=== PATIENT | female | born 1985 | race African-American/Black ===

== ENCOUNTER 2017-04-11 12:36 | Emergency (ER) | payer OTHER ==
--- NOTE | 2017-04-11 12:43 | ED ---
ENT HPI - General Stated complaint: Dental Pain Time Seen by Provider: 04/11/17 12:40 Source: patient, RN notes reviewed Mode of arrival: ambulatory Limitations: no limitations - History of Present Illness Initial comments: This a 32-year-old female presented emergency Department chief complaint of dental fracture. Patient states her tooth broke other day, filling fall out. Patient states that she woke up with excruciating pain today. Patient states that nothing seems to be helping. Patient denies any fever, chills, facial swelling. Denies any difficulty swallowing. Patient denies headache, dizziness , neck pain, chest pain, shortness breath. - Related Data Home Medications Medication Instructions Recorded Confirmed Albuterol Inhaler [Ventolin Hfa 1 - 2 puff INHALATION RT-Q6H PRN 01/26/16 Inhaler] Previous Rx's Medication Instructions Recorded PARoxetine [Paxil] 20 mg PO DAILY #28 tab 01/29/16 Temazepam [Restoril] 15 mg PO HS PRN #7 cap 01/29/16 buPROPion SR [Wellbutrin SR] 100 mg PO BID #56 tablet.er 01/29/16 Acetaminophen-Codeine 300-30mg 1 tab PO Q4H PRN #20 tablet 04/11/17 [Tylenol #3] Clindamycin HCl 300 mg PO Q6HR #40 cap 04/11/17 Ibuprofen [Motrin] 600 mg PO Q8HR PRN #30 tab 04/11/17 Allergies Allergy/AdvReac Type Severity Reaction Status Date / Time cephalexin [From Keflex] Allergy Swelling Verified 04/11/17 12:43 Penicillins Allergy Swelling Verified 04/11/17 12:43 Review of Systems ROS Statement: Those systems with pertinent positive or pertinent negative responses have been documented in the HPI. ROS Other: All systems not noted in ROS Statement are negative. Past Medical History Past Medical History: No Reported History History of Any Multi-Drug Resistant Organisms: None Reported Past Surgical History: Tubal Ligation Past Psychological History: Bipolar, Schizophrenia Smoking Status: Current every day smoker Past Alcohol Use History: Occasional Past Drug Use History: Marijuana General Exam General appearance: alert, in no apparent distress Head exam: Present: atraumatic, normocephalic, normal inspection Eye exam: Present: normal appearance, PERRL, EOMI. Absent: scleral icterus, conjunctival injection, periorbital swelling ENT exam: Present: mucous membranes moist, TM's normal bilaterally. Absent: normal exam, normal oropharynx (Dental fracture noted #17 no drainable abscess) Neck exam: Present: normal inspection, full ROM. Absent: tenderness, meningismus, lymphadenopathy Respiratory exam: Present: normal lung sounds bilaterally. Absent: respiratory distress, wheezes, rales, rhonchi, stridor Cardiovascular Exam: Present: regular rate, normal rhythm, normal heart sounds. Absent: systolic murmur, diastolic murmur, rubs, gallop, clicks Course Vital Signs 04/11/17 12:42 Temperature 97.7 F Pulse Rate 80 Respiratory 20 Rate Blood Pressure 180/104 O2 Sat by Pulse 100 Oximetry Medical Decision Making - Medical Decision Making 32-year-old female presented to the emergency department for dental pain. Patient was found to have a dental fracture with no obvious abscess or current infection. Patient treated pain medication, antibiotics prophylactically and follow-up with dentist. Return parameters were discussed. Disposition Clinical Impression: Pain, dental, Tooth fracture Disposition: HOME SELF-CARE Condition: Stable Instructions: Toothache (ED) Additional Instructions: Please return to the Emergency Department if symptoms worsen or any other concerns. Prescriptions: Acetaminophen-Codeine 300-30mg [Tylenol #3] 1 tab PO Q4H PRN #20 tablet PRN Reason: pain Clindamycin HCl 300 mg PO Q6HR #40 cap Ibuprofen [Motrin] 600 mg PO Q8HR PRN #30 tab PRN Reason: Pain Referrals: Arian Espino MD [Primary Care Provider] - 1-2 days Time of Disposition: 12:47
[2017-04-11 12:44] VITALS: PULSE 80; RESP 20; TEMP 97.7
[2017-04-11] MEDS ORDERED: Acetaminophen-Codeine 300-30mg TAB PO STA (12:48)
[2017-04-11 13:06] VITALS: BP 168/100
== END 2017-04-11 13:03 | disposition home or self-care (01) ==
LOC: EC 12:36
DX: S02.5XXA Fracture of tooth (traumatic), initial encounter for closed fracture (principal); F17.200 Nicotine dependence, unspecified, uncomplicated; Z88.0 Allergy status to penicillin; Z88.1 Allergy status to other antibiotic agents
CPT/HCPCS: 99282

== ENCOUNTER 2017-10-01 17:22 | Inpatient (IN) | payer MEDICAID, OTHER ==
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
[2017-10-01 18:38] LABS: Amphetamine Screen,Urine Not Detected (NotDetected); Barbiturate Screen,Urine Not Detected (NotDetected); Benzodiazepines Screen,Urine Not Detected (NotDetected); Cocaine Screen,Urine Not Detected (NotDetected); Methadone Screen, Urine Not Detected (NotDetected); Opiate Screen,Urine Not Detected (NotDetected); Oxycodone Screen, Urine Not Detected (NotDetected); Phencyclidine Screen,Urine Not Detected (NotDetected); Tricyclic Antidepressant,Urine Not Detected (NotDetected); Urn Cannabinoid Scrn Not Detected (NotDetected)
[2017-10-01] MEDS ORDERED: LORazepam 1 MG TAB PO STA (20:32)
[2017-10-01] MEDS ORDERED: ACETAMINOPHEN TAB 325 MG TAB PO PRN (23:19)
[2017-10-01] MEDS ORDERED: ZIPRASIDONE 20 MG VIAL IM PRN (23:19)
[2017-10-01] MEDS ORDERED: MAG HYDROX/AL HYDROX/SIMETH 30 ML CUP PO PRN (23:19)
[2017-10-01] MEDS ORDERED: MAGNESIUM HYDROXIDE 2,400 MG/10 ML CUP PO PRN (23:19)
[2017-10-02] MEDS: IBUPROFEN 800 MG TAB PO PRN ×2 (00:27→20:34)
[2017-10-02 03:13] VITALS: BMI 36.1
[2017-10-02] MEDS: NICOTINE 14MG/24HR PATCH TRANSDERM SCH (08:30)
[2017-10-02] MEDS: amLODIPine 5 MG TAB PO SCH (08:30)
[2017-10-02] MEDS: CHLORTHALIDONE 25 MG TAB PO SCH (08:31)
[2017-10-02] MEDS: traMADol 50 MG TAB PO PRN ×2 (08:34→17:55)
[2017-10-02] MEDS: CYCLOBENZAPRINE 10 MG TAB PO PRN ×3 (08:34→20:34)
[2017-10-02] MEDS ORDERED: buPROPion SR 150 MG TABLET.ER PO SCH (09:00)
[2017-10-02] MEDS ORDERED: VENLAFAXINE HCL ER 150 MG CAP PO SCH (09:00)
[2017-10-02] MEDS ORDERED: busPIRone HCl 5 MG TAB PO SCH (09:00)
[2017-10-02] MEDS: ARIPiprazole 10 MG TAB PO SCH (10:35)
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
[2017-10-02 11:21] LABS: Basophils # (A) 0.1 k/uL (0-0.2); Basophils % (A) 1 %; Eosinophils # (A) 0.2 k/uL (0-0.7); Eosinophils % (A) 2 %; HCT 45.9 % (34.0-46.0); HGB 14.7 gm/dL (11.4-16.0); Lymphocytes # (A) 2.7 k/uL (1.0-4.8); Lymphocytes % (A) 40 %; MCH 31.1 pg (25.0-35.0); MCV 97.2 fL (80.0-100.0); Mean Platelet Volume 7.1; Monocytes # (A) 0.6 k/uL (0-1.0); Monocytes % (A) 8 %; Neutrophils # (A) 3.2 k/uL (1.3-7.7); Neutrophils % (A) 47 %; Platelet Count 294 k/uL (150-450); RBC 4.72 m/uL (3.80-5.40); RDW 13.5 % (11.5-15.5); WBC 6.8 k/uL (3.8-10.6)
[2017-10-02 11:47] LABS: Albumin 4.8 g/dL (3.5-5.0); Calcium 9.9 mg/dL (8.4-10.2); Potassium 3.9 mmol/L (3.5-5.1); Total Bilirubin 0.5 mg/dL (0.2-1.3)
--- NOTE | 2017-10-02 18:11 | CONS ---
CONSULTATION CHIEF COMPLAINT: Acute psychosis. HISTORY OF PRESENT ILLNESS: This is another admission to the psych floor for this 32-year-old female who has a long standing history of bipolar depression. She apparently ran out of her medications 2 weeks ago and came in the emergency room where it was felt that she was severely depressed and psychotic and was admitted. REVIEW OF SYSTEMS: She has had no headaches, neurologic problems, difficulty with vision or the hearing, chest pain, palpitations, abdominal pain vomiting and diarrhea, melena, hematochezia, urinary complaints, diabetes, etc. Past medical history, family history, personal and social histories reveal that she is ALLERGIC TO PENICILLIN. Medications that she has been on in the past were Ultram, Cymbalta, ibuprofen, cyclobenzaprine, trazodone, BuSpar, Chantix, Wellbutrin. She has had 7 pregnancies and 2 children (twins). She used to smoke. She does not drink. PHYSICAL EXAM: Blood pressure 138/88, pulse of 88, respirations of 18 and temperature 96.8. In general, she appeared well developed, well nourished, in no acute distress. Skin color is normal. Skin is warm, dry. Lymph nodes not enlarged. Head, ears, eyes, nose, mouth and throat were normal. Neck veins not distended. Thyroid enlarged. Chest is clear. Cardiac exam is normal. Abdomen is soft, nontender. Extremities normal. Neurologically, she is intact. IMPRESSION: Bipolar depression. PLAN: Will follow with psychiatry. MMODL / IJN: [id number] /
--- NOTE | 2017-10-02 18:35 | XR ---
EXAMINATION TYPE: XR foot limited RT DATE OF EXAM: 10/02/2017 COMPARISON: NONE HISTORY: Pain and injury TECHNIQUE: 2 views FINDINGS: There are moderate plantar and Achilles calcaneal spurs. Metatarsals are intact. The big to e is intact. I see no fracture nor dislocation. IMPRESSION: Calcaneal spurring. No fracture seen.
[2017-10-02 19:50] LABS: Hemoglobin A1C 5.5 % (4.0-6.0)
[2017-10-02] MEDS: LORazepam 1 MG TAB PO PRN (20:34)
[2017-10-02] MEDS ORDERED: traZODone HCL 50 MG TAB PO SCH (21:00)
[2017-10-03] MEDS: LORazepam 1 MG TAB PO PRN ×2 (07:40→21:19)
[2017-10-03] MEDS: ARIPiprazole 10 MG TAB PO SCH (08:39)
[2017-10-03] MEDS: NICOTINE 14MG/24HR PATCH TRANSDERM SCH (08:39)
[2017-10-03] MEDS: amLODIPine 5 MG TAB PO SCH (08:39)
[2017-10-03] MEDS: CHLORTHALIDONE 25 MG TAB PO SCH (08:39)
[2017-10-03] MEDS: traMADol 50 MG TAB PO PRN ×2 (08:39→17:57)
[2017-10-03] MEDS: CYCLOBENZAPRINE 10 MG TAB PO PRN ×2 (08:39→17:59)
[2017-10-03] MEDS ORDERED: DULoxetine HCL 60 MG CAPSULE.DR PO SCH (09:00)
--- NOTE | 2017-10-03 12:15 | P.PN ---
Progress Note - Text Progress Note Date: 10/03/17 Interval History: Patient is a 32-year-old female who was seen in coverage for Dr. Almonte. Patient states that she must of injured her toe when she was manic but doesn't recall what she was doing and states that when she gets manic she doesn't recall what she does. Patient states that she was talking to her boyfriend friend and the voices were telling her that he had someone over there with him she states that she got upset got off the phone spoke with staff and asked for some medication. Patient states that she is also paranoid because when she was in group she thought everyone was whispering about her, she also was concerned that someone would do something to her food when she was eating breakfast and needed to walk out of the dining room. She reports that she did sleep last night and has been eating. She reports no side effects from the medication. Mental Status: Appearance/Attitude: Patient is casually groomed, makes good eye contact and was cooperative. Behavior: Patient did not exhibit any psychomotor agitation or retardation. Speech/Language: Patient's speech is of normal volume and rhythm and she is coherent Thought Process: Patient was goal-directed there is evidence of loose association or flight of ideas Thought Content: Patient states that she continues to hear voices earlier today she was on the phone with her boyfriend there were telling her that he had someone else over there with him. She denied any visual hallucinations. Patient also had concerns of people were whispering about her and that someone might do something to her food. Patient states that she hurt her foot somehow when she was in a manic phase but doesn't recall what she did. Patient states that she is sleeping and eating. Suicidal/Homicidal Ideation: Patient denied any current suicidal or homicidal ideation Sensorium/Cognition: Patient was alert and oriented to person, place, and time Mood/Affect: Patient's mood is irritable, she was distressed about the paranoid thoughts that she's been having and her affect was appropriate to her mood Insight/Judgment: Patient's insight and judgment are fair Assessment: Patient reports continued auditory hallucinations and paranoid ideation, patient states that she is irritable and was quite distressed about the paranoid ideation. She states that she's been attending some groups and activities. Patient did request when necessary Ativan this morning when she was on the phone with her boyfriend. She reports no side effects from the medication. Patient was begun on Cymbalta 60 mg by her PCP this morning. Foot x-ray revealed no fractures Plan: Patient will continue on Abilify 10 mg to target her mood and psychotic symptoms, we'll discontinue the Cymbalta 60 mg the patient is a bipolar patient and antidepressants should not be prescribed. Patient continues to require hospitalization to further stabilize her mood and target her psychotic symptoms.
[2017-10-03] MEDS: IBUPROFEN 800 MG TAB PO PRN (21:19)
[2017-10-04] MEDS: ARIPiprazole 10 MG TAB PO SCH (08:48)
[2017-10-04] MEDS: amLODIPine 5 MG TAB PO SCH (08:48)
[2017-10-04] MEDS: CHLORTHALIDONE 25 MG TAB PO SCH (08:48)
[2017-10-04] MEDS: NICOTINE 14MG/24HR PATCH TRANSDERM SCH (08:48)
[2017-10-04] MEDS: LORazepam 1 MG TAB PO PRN ×2 (08:50→20:21)
[2017-10-04] MEDS: traMADol 50 MG TAB PO PRN ×2 (08:53→20:21)
[2017-10-04] MEDS: CYCLOBENZAPRINE 10 MG TAB PO PRN ×2 (09:07→20:21)
[2017-10-04 12:01] LABS: Appearance,Urine Cloudy (Clear); Bacteria,Urine Many /hpf; Bilirubin,Urine Negative (Negative); Blood,Urine Negative (Negative); Color,Urine Yellow; Glucose,Urine (UA) Negative (Negative); Ketones,Urine Negative (Negative); Leukocyte Esterase,Urine Small (Negative); Mucus,Urine Many /hpf; Nitrite,Urine Positive (Negative); Protein,Urine Negative (Negative); RBC,Urine 2 /hpf (0-5); Specific Gravity,Urine 1.016 (1.001-1.035); Squamous Epithelial Cell,Urine 5 /hpf (0-4); Urobilinogen,Urine <2.0 mg/dL (<2.0); WBC,Urine 7 /hpf (0-5)
--- NOTE | 2017-10-04 14:09 | P.PN ---
Progress Note - Text Progress Note Date: 10/04/17 Interval History: Patient is a 32-year-old female being seen in coverage for Dr. Almonte. Patient states that she is feeling really good feels her mood is much more stable. Patient states she took Ativan and helps her not feel as anxious she is able to relax and sit in groups. Patient states otherwise she thinks people are always talking about her looking at her. Patient states that she is not is irritable and her mood hasn't gone up and down. Patient has been attending groups and activities. She states that she slept well last night and has been trying to go to groups today. Mental Status:Appearance/Attitude: Patient is casually dressed and makes good eye contact and was cooperative Behavior: Patient does not exhibit any psychomotor agitation or retardation Speech/Language: Patient's speech is spontaneous of normal volume and rhythm and she is coherent Thought Process: Patient is goal-directed no evidence of loose association or flight of ideas Thought Content: Patient denies any auditory or visual hallucinations and no delusions or paranoid ideation were elicited. Patient states that she is feeling much better today, she hasn't taken Ativan and she states that it helps with her anxiety and she is able to relax and attend groups and sit still. Patient states that she slept well and her appetite is good. Suicidal/Homicidal Ideation: Patient denies any current suicidal or homicidal ideation Sensorium/Cognition: Patient is alert and oriented to person, place, and time and her recent and remote memory are grossly intact Mood/Affect: Patient's mood is stable and her affect is appropriate, she continues to complain of anxiety when in groups and activities Insight/Judgment: Patient's insight and judgment are fair Assessment: Patient reports that she is doing much better it's noted that the patient did Ativan twice yesterday and again this morning and states that it makes her feel less anxious she is able to relax and sit still and attend groups and activities. She reports that she is not feeling as irritable and slept for 5 hours last night. Patient states that she is going to groups and activities today. She is complaining of some sharp pain upon urination no burning and a urine culture will be obtained. Patient reported no side effects from the medication. Plan: Patient will continue on Abilify 10 mg daily, she continues to have Ativan 1 mg twice a day when necessary. Patient will also have a urine culture and sensitivity. Patient continues to require hospitalization to further stabilize her mood.
[2017-10-05] MEDS: CHLORTHALIDONE 25 MG TAB PO SCH (08:29)
[2017-10-05] MEDS: LORazepam 1 MG TAB PO PRN ×2 (08:34→20:07)
[2017-10-05] MEDS: NICOTINE 14MG/24HR PATCH TRANSDERM SCH (08:34)
[2017-10-05] MEDS: traMADol 50 MG TAB PO PRN ×2 (08:34→20:06)
[2017-10-05] MEDS: amLODIPine 5 MG TAB PO SCH (08:34)
[2017-10-05] MEDS: ARIPiprazole 10 MG TAB PO SCH (09:35)
[2017-10-05] MEDS ORDERED: ARIPiprazole 5 MG TAB PO ONE (09:40)
[2017-10-05] MEDS ORDERED: hydrOXYzine PAMOATE 25 MG CAP PO PRN (09:45)
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
[2017-10-05 10:32] LABS: Urine Alcohol Negative (Negative); Urine Barbiturate Negative (Negative); Urine Cocaine Negative (Negative); Urine Methadone Negative (Negative); Urine Opiates Negative (Negative); Urine Phencyclidine Negative (Negative)
[2017-10-05] MEDS: IBUPROFEN 800 MG TAB PO PRN (11:55)
[2017-10-05] MEDS: SULFAMETHOX-TMP 800-160MG 1 EACH TAB PO SCH (20:04)
[2017-10-05] MEDS: CYCLOBENZAPRINE 10 MG TAB PO PRN (20:07)
[2017-10-06 06:09] VITALS: RESP 16
[2017-10-06] MEDS: NICOTINE 14MG/24HR PATCH TRANSDERM SCH (08:21)
[2017-10-06] MEDS: ARIPiprazole 15 MG TAB PO SCH (08:21)
[2017-10-06] MEDS: SULFAMETHOX-TMP 800-160MG 1 EACH TAB PO SCH ×2 (08:21→20:49)
[2017-10-06] MEDS: CYCLOBENZAPRINE 10 MG TAB PO PRN ×2 (08:21→20:51)
[2017-10-06] MEDS: amLODIPine 5 MG TAB PO SCH (08:21)
[2017-10-06] MEDS: CHLORTHALIDONE 25 MG TAB PO SCH (08:21)
[2017-10-06] MEDS: traMADol 50 MG TAB PO PRN ×2 (08:22→20:51)
[2017-10-06] MEDS: LORazepam 1 MG TAB PO PRN ×2 (08:22→20:51)
--- NOTE | 2017-10-06 09:18 | P.PN ---
Progress Note - Text Interval history: The patient is found in the dining room she follows me to an interview room. She states that her mood continues to improve. Sleep was adequate last night. She is attending groups. We reviewed her psychotropic medications and her questions were answered. She has spoken with her environmental attorney and believes her court case for tomorrow will be adjourned. Mental status exam: The patient is an overweight -Thai female appearing her stated age. She is dressed in her own clothing hygiene grooming are adequate she is wearing makeup. She reports her mood is improving. She is reporting no suicidal or homicidal ideation intent or plan. She does continue to endorse auditory hallucinations that will be commanding at times but not directing self-harm or harm to others. She states he's have gone from a "full blown voice" down to a whisper. She reports feeling safe she is endorsing no paranoid or persecutory thoughts. Thought process is linear she is demonstrating no tangential thinking loose associations or flight of ideas. She demonstrates no verbal or physical aggressiveness she demonstrates no involuntary movements. She remains oriented to person place and date. Plan: The patient will continue on her current medications. We will monitor her auditory hallucinations. She does appear to be clinically stabilizing and may be appropriate for discharge in the next 1-2 days. Vital signs reviewed. She is encouraged to continue participating in the milieu.
[2017-10-07 07:08] VITALS: BP 110/59; PULSE 77; TEMP 97.9
[2017-10-07] MEDS: CHLORTHALIDONE 25 MG TAB PO SCH (08:06)
[2017-10-07] MEDS: ARIPiprazole 15 MG TAB PO SCH (08:06)
[2017-10-07] MEDS: NICOTINE 14MG/24HR PATCH TRANSDERM SCH (08:06)
[2017-10-07] MEDS: amLODIPine 5 MG TAB PO SCH (08:06)
[2017-10-07] MEDS: LORazepam 1 MG TAB PO PRN (08:06)
[2017-10-07] MEDS: traMADol 50 MG TAB PO PRN (08:07)
[2017-10-07] MEDS: CYCLOBENZAPRINE 10 MG TAB PO PRN (08:08)
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
[2017-10-07] MEDS: IBUPROFEN 800 MG TAB PO PRN (11:26)
[2017-10-07] MEDS: SULFAMETHOX-TMP 800-160MG 1 EACH TAB PO SCH (11:26)
[2017-10-07] MEDS ORDERED: CIPROFLOXACIN HCL 500 MG TAB PO SCH (21:00)
== END 2017-10-07 12:26 | disposition home or self-care (01) | DRG 885 ==
LOC: EC 17:22 → 3MHU 21:56
PROVIDERS: ADMIT Psychiatry & Neurology Psychiatry; ATTEND Psychiatry & Neurology Psychiatry
DX: F31.5 Bipolar disorder, current episode depressed, severe, with psychotic features (principal); N39.0 Urinary tract infection, site not specified; R45.851 Suicidal ideations; F17.200 Nicotine dependence, unspecified, uncomplicated; F41.9 Anxiety disorder, unspecified; I10 Essential (primary) hypertension; M06.9 Rheumatoid arthritis, unspecified; Z62.810 Personal history of physical and sexual abuse in childhood; Z79.899 Other long term (current) drug therapy; Z81.8 Family history of other mental and behavioral disorders; Z91.5 Personal history of self-harm; Z79.1 Long term (current) use of non-steroidal anti-inflammatories (NSAID); Z88.1 Allergy status to other antibiotic agents; Z88.0 Allergy status to penicillin; Z56.0 Unemployment, unspecified; E66.3 Overweight; Z68.35 Body mass index [BMI] 35.0-35.9, adult; Z63.0 Problems in relationship with spouse or partner; Z65.3 Problems related to other legal circumstances
CPT/HCPCS: 80053; 80061; 80306; 81001; 81025; 82075; 83036; 84443; 85025; 87077; 87086; 87186; 99285

== ENCOUNTER → 2017-10-22 | Outpatient (CLI) | payer OTHER ==
--- NOTE | 2017-10-22 15:52 | US ---
EXAMINATION TYPE: US pelvis complete transvag DATE OF EXAM: 10/22/2017 COMPARISON: Prior pelvic ultrasound March 24, 2013 CLINICAL HISTORY: N91.2 Amenorrhea. TECHNIQUE: . Transabdominal sonographic images of the pelvis were acquired. Transvaginal sonographi c images were medically necessary to better assess the following anatomy: better viz rt adnexa and en dometrium Date of LMP: 2 years ago EXAM MEASUREMENTS: Uterus: 7.6 x 3.0 x 4.8 cm Endometrial Stripe: 0.8 cm Right Ovary: 3.8 x 3.2 x 4.0 cm Left Ovary: 1.8 x 1.3 x 1.5 cm 1. Uterus: Anteverted wnl 2. Endometrium: irregular upper endo 3. Right Ovary: large vascular mass 4. Left Ovary: wnl 5. Rolando Adnexa: vascular mass Rt 6. Posterior cul-de-sac: wnl Endometrium is heterogeneously hyperechoic but not suspiciously thickened measuring 5 to 8 mm. Tiny a mount of free fluid is seen in pelvic cul-de-sac. Right ovary is asymmetrically enlarged versus oppos ite left side, cannot exclude new solid mass at this level. IMPRESSION: Suspicious area in the right ovary, cannot exclude heterogeneous solid mass. Advise MRI t o further evaluate and characterize.
== END | disposition home or self-care (01) ==
LOC: RADUSWWP 14:50
PROVIDERS: ATTEND Family Medicine
DX: R93.8 Abnormal findings on diagnostic imaging of other specified body structures (principal); Z88.0 Allergy status to penicillin
CPT/HCPCS: 76830; 76856

== ENCOUNTER → 2017-11-13 | Outpatient (CLI) | payer OTHER ==
[2017-11-13 10:31] LABS: Lithium 0.8 mmol/L
[2017-11-13 10:47] LABS: T4, Free (Free Thyroxine) 0.86 ng/dL (0.78-2.19)
== END | disposition home or self-care (01) ==
LOC: LABWHC1 08:52
PROVIDERS: ATTEND Psychiatry & Neurology Psychiatry
DX: Z51.81 Encounter for therapeutic drug level monitoring (principal); Z79.899 Other long term (current) drug therapy
CPT/HCPCS: 36415; 80061; 80178; 82565; 82947; 83036; 84439; 84443; 84520